=== PATIENT | male | born 1940 | race Caucasian/White ===

== ENCOUNTER 2016-07-29 07:28 | Day surgery (SDC) | payer MEDICARE ==
[~2016-07-29 07:28] MED LIST: Buffered Lidocaine 1% SYR 3ML* 3 ML/SYR SYRINGE INTRADERM ONE; Famotidine IV* 10 MG/ML 2 ML (20 mg) IV ONE
[2016-07-29] MEDS ORDERED: ceFAZolin 2 GM PREMIX (*) 2 GM/50 ML BAG IVPB ONE (07:51)
[2016-07-29] MEDS ORDERED: Famotidine IV* 10 MG/ML 2 ML (20 mg) ONE (07:52)
[2016-07-29] MEDS ORDERED: Midazolam* 1 MG/ML 5 ML VIAL (5 MG) ONE (07:53)
[2016-07-29] MEDS ORDERED: fentaNYL* 50 MCG/ML 2 ML VIAL (100 MCG VIAL) ONE (07:53)
[2016-07-29] MEDS ORDERED: Lidocaine 2% PF * 5 ML VIAL ONE (08:25)
[2016-07-29] MEDS ORDERED: Propofol* 10 MG/ML 20 ML BTL IV PUSH ONE (08:25)
[2016-07-29] MEDS ORDERED: Ondansetron INJ* 2 MG/ML VIAL ONE (08:25)
[2016-07-29] MEDS ORDERED: Lidocain 1% EPI 1:100,000 * 30 ML MDV ONE (08:49)
[2016-07-29] MEDS ORDERED: oxyCODONE/Acetamin 5/325 MG* TAB PO PRN (09:58)
[2016-07-29] MEDS ORDERED: Acetaminophen TAB* 325 MG PO PRN (09:58)
[2016-07-29] MEDS ORDERED: DiMENhydriNATE IV* 50 MG/ML VIAL IV PUSH PRN (09:58)
[2016-07-29 10:34] VITALS: BP 127/68
== END 2016-07-29 10:49 | disposition home or self-care (01) ==
LOC: OREAST 07:28
PROVIDERS: ATTEND Plastic Surgery
DX: C43.39 Malignant melanoma of other parts of face (principal); G20 Parkinson's disease
CPT/HCPCS: 88305; J0690; J2250; J2405; J2704; J3010

== ENCOUNTER 2018-07-01 09:12 | Emergency (ER) | payer MEDICARE ==
[2018-07-01 10:45] VITALS: BP 156/83
--- NOTE | 2018-07-01 10:57 | UC ---
Respiratory Complaint HPI - HPI Summary HPI Summary: Pt c/o cough nasal congestion chills fatigue X 3 days. - History of Current Complaint Chief Complaint: UCRespiratory Stated Complaint: COUGH Time Seen by Provider: 07/01/18 10:46 Hx Obtained From: Patient Onset/Duration: Sudden Onset, Lasting Days, Still Present Timing: Constant Severity Initially: Mild Severity Currently: Moderate Pain Intensity: 7 Character: Cough: Nonproductive Aggravating Factors: Deep Breaths, Recumbent Position Alleviating Factors: Nothing Associated Signs And Symptoms: Positive: URI, Nasal Congestion - Risk Factors Pulmonary Embolism Risk Factors: Negative Cardiac Risk Factors: Hypertension Pseudomonas Risk Factors: Negative Tuberculosis Risk Factors: Negative - Allergies/Home Medications Allergies/Adverse Reactions: Allergies Allergy/AdvReac Type Severity Reaction Status Date / Time amoxicillin [From Augmentin] AdvReac Dizziness Verified 07/01/18 10:47 clavulanic acid AdvReac Dizziness Verified 07/01/18 10:47 [From Augmentin] Vitamin E Allergy Tachycardia Uncoded 07/01/18 10:46 Home Medications: Home Medications Cannabidiol (CBD) Extract (NF) [Epidiolex (NF)] 100 mg PO DAILY 07/01/18 [ History Confirmed 07/01/18] Carbidopa/Levodopa [Carbidopa-Levodopa 25-100 Tab] 1 each PO Q6HR 07/01/18 [ History Confirmed 07/01/18] PMH/Surg Hx/FS Hx/Imm Hx Previously Healthy: No Cardiovascular History: Hypertension Neurological History: Other - parkinsons - Surgical History Surgical History: Yes Surgery Procedure, Year, and Place: Left knee surgery 2011 TO RE-ATTACH QUAD, prostate surgery 2000, Tonsillectomy-as a child - Social History Occupation: Retired Lives: With Family Alcohol Use: None Substance Use Type: Marijuana Substance Use Comment - Amount & Last Used: cannibis oil PO x 1 QD Smoking Status (MU): Never Smoked Tobacco Have You Smoked in the Last Year: No - Immunization History Most Recent Influenza Vaccination: fall Most Recent Tetanus Shot: up to date Most Recent Pneumonia Vaccination: never Review of Systems All Other Systems Reviewed And Are Negative: Yes Constitutional: Positive: Chills, Fatigue Skin: Positive: Negative Eyes: Positive: Negative ENT: Positive: Sinus Congestion Respiratory: Positive: Cough Cardiovascular: Positive: Negative Gastrointestinal: Positive: Negative Genitourinary: Positive: Negative Motor: Positive: Negative - at baseline Neurovascular: Positive: Negative - has parkinson Musculoskeletal: Positive: Other: - has parkinson at baseline Neurological: Positive: Other - has parkinsons at baseline tremors Psychological: Positive: Negative Is Patient Immunocompromised?: No Physical Exam Triage Information Reviewed: Yes Appearance: Ill-Appearing Vital Signs: Initial Vital Signs Temp 97.7 F 07/01/18 10:39 Pulse 79 07/01/18 10:39 Resp 20 07/01/18 10:39 BP 156/83 07/01/18 10:39 Pulse Ox 96 07/01/18 10:39 Vital Signs Reviewed: Yes Eye Exam: Normal ENT: Positive: Nasal congestion Dental Exam: Normal Neck exam: Normal Respiratory: Positive: Decreased breath sounds Cardiovascular Exam: Normal Musculoskeletal Exam: Normal Neurological Exam: Normal Neurological: Positive: Other: - tremors from parkinsons Psychological Exam: Normal Skin Exam: Normal UC Diagnostic Evaluation - Laboratory O2 Sat by Pulse Oximetry: 96 Respiratory Course/Dx - Differential Dx/Diagnosis Differential Diagnosis/HQI/PQRI: Bronchitis, Influenza Provider Diagnosis: Bronchitis Discharge - Sign-Out/Discharge Documenting (check all that apply): Patient Departure All imaging exams completed and their final reports reviewed: No Studies - Discharge Plan Condition: Stable Disposition: HOME Prescriptions: Azithromycin TAB* [Zithromax TAB (Z-MONICA) 250 mg #6 tabs] 2 tab PO .TODAY, THEN 1 DAILY #1 monica Benzonatate CAP* [Tessalon 100 MG CAP*] 200 mg PO Q8H PRN #30 cap PRN Reason: Cough predniSONE TAB* [Deltasone 10 MG TAB*] 30 mg PO DAILY #12 tab Patient Education Materials: Acute Bronchitis (ED) Referrals: Jermaine Hudson MD [Primary Care Provider] - If Needed - Billing Disposition and Condition Condition: STABLE Disposition: Home - Attestation Statements Provider Attestation: I was available for consult. This patient was seen by the SURAJ. The patient was not presented to, seen by, or examined by me. EK
== END 2018-07-01 11:03 | disposition home or self-care (01) ==
LOC: UCCORT 09:12
DX: J40 Bronchitis, not specified as acute or chronic (principal); R09.81 Nasal congestion; I10 Essential (primary) hypertension; G20 Parkinson's disease; Z88.1 Allergy status to other antibiotic agents; Z88.8 Allergy status to other drugs, medicaments and biological substances; Z79.899 Other long term (current) drug therapy
CPT/HCPCS: 99212; G0463